=== PATIENT | male | born 1975 | race Caucasian/White ===

== ENCOUNTER 2021-04-15 13:17 | Inpatient (IN) | payer OTHER ==
[2021-04-15 16:33] VITALS: BMI 23.1
[2021-04-15] MEDS ORDERED: ACETAMINOPHEN 325 MG TABLET (FP) PO PRN ×2 (16:44)
[2021-04-15] MEDS ORDERED: NICOTINE 10 MG CARTRIDGE (INHALER) IH PRN (16:44)
[2021-04-15] MEDS ORDERED: diazePAM 5 MG TABLET PO PRN (16:44)
[2021-04-15] MEDS ORDERED: MAGNESIUM CITRATE 300 ML BOTTLE PO PRN (16:44)
[2021-04-15] MEDS ORDERED: BISMUTH SUBSALICYLATE 524 MG/30 ML PO PRN (16:44)
[2021-04-15] MEDS ORDERED: MENTHOL/PHENOL 1 EACH UD MM PRN (16:44)
[2021-04-15] MEDS ORDERED: MAGNESIUM HYDROX 2400MG/30ML ORAL SUSPENSION 30 ML CUP PO PRN (16:44)
[2021-04-15] MEDS ORDERED: MAG HYDROX/AL HYDROX/SIMETH 30 ML UNIT-DOSE CUP PO PRN (16:44)
[2021-04-15] MEDS ORDERED: ONDANSETRON *ODT* 4 MG TABLET SL PRN (16:44)
[2021-04-15] MEDS: hydrOXYzine PAMOATE 25 MG CAPSULE (FP) PO SCH ×2 (18:56→22:36)
[2021-04-15] MEDS: AMOX TR/POT CLAV 875MG/125MG TABLETS (FP) PO SCH (18:56)
[2021-04-15] MEDS: diazePAM 5 MG TABLET PO SCH ×2 (18:56→22:36)
[2021-04-15] MEDS: MELATONIN 5 MG TABLETS PO SCH (22:35)
[2021-04-15] MEDS: THIAMINE HCL 100 MG TABLET (FP) PO SCH (22:36)
[2021-04-16] MEDS: diazePAM 5 MG TABLET PO SCH ×4 (05:29→23:18)
[2021-04-16] MEDS: AMOX TR/POT CLAV 875MG/125MG TABLETS (FP) PO SCH ×2 (07:07→18:17)
[2021-04-16] MEDS ORDERED: methaDONE HCL 10 MG TABLET PO ONE (09:47)
[2021-04-16] MEDS ORDERED: methaDONE 40 MG, methaDONE 10 MG PO ONE (10:00)
[2021-04-16] MEDS ORDERED: methaDONE HCL 10 MG TABLET ONE (11:28)
[2021-04-16] MEDS ORDERED: methaDONE HCL 40 MG DISPERSABLE TABLET ONE (11:28)
[2021-04-16] MEDS: PRENATAL VITAMINS W/ FOLIC ACID TABLET (FP) PO SCH (11:31)
[2021-04-16 12:43] LABS: CHLORIDE 104 mmol/L (98-107); HEMATOCRIT 37.9 % (35.4-49); HEMOGLOBIN 12.8 GM/dL (11.7-16.9); MCH 31.4 pg (25.7-33.7); MCHC 33.7 g/dl (32.0-35.9); MEAN CELL VOLUME 93.2 fl (80-96); MEAN PLT VOLUME 7.8 fl (7.5-11.1); PLATELET COUNT 483 10^3/uL (134-434); RBC 4.07 M/mm3 (4.00-5.60); RDW 13.4 % (11.9-15.9); SODIUM 139 mmol/L (136-145); WHITE BLOOD COUNT 9.8 K/mm3 (4.0-10.0)
[2021-04-16 12:46] LABS: ALBUMIN 3.4 g/dl (3.4-5.0); ANION GAP 2 MMOL/L (8-16); BLOOD UREA NITROGEN 21.7 mg/dL (7-18); CALCIUM 8.8 mg/dL (8.5-10.1); CO2 33 mmol/L (21-32); GLUCOSE,RANDOM 83 mg/dL (74-106)
[2021-04-16 12:50] LABS: CREATININE 0.8 mg/dL (0.55-1.3); SGOT/AST 24 U/L (15-37); SGPT/ALT 24 U/L (13-61)
[2021-04-16 12:51] LABS: BILIRUBIN,TOTAL 0.3 mg/dL (0.2-1); TOT PROT 7.4 g/dl (6.4-8.2)
[2021-04-16 12:52] LABS: ALK PHOS 94 U/L (45-117)
[2021-04-16 22:43] LABS: HIV INTERPRETATION NEGATIVE (NEGATIVE)
[2021-04-16] MEDS: THIAMINE HCL 100 MG TABLET (FP) PO SCH (23:18)
[2021-04-16] MEDS: MELATONIN 5 MG TABLETS PO SCH (23:18)
[2021-04-17] MEDS ORDERED: methaDONE HCL 40 MG DISPERSABLE TABLET PO SCH (06:00)
[2021-04-17] MEDS ORDERED: methaDONE HCL 40 MG DISPERSABLE TABLET ONE (07:24)
[2021-04-17] MEDS ORDERED: methaDONE HCL 10 MG TABLET ONE (07:24)
[2021-04-17] MEDS: AMOX TR/POT CLAV 875MG/125MG TABLETS (FP) PO SCH ×2 (07:27→17:37)
[2021-04-17] MEDS: methaDONE 40 MG, methaDONE 10 MG PO SCH (07:27)
[2021-04-17] MEDS: diazePAM 5 MG TABLET PO SCH ×3 (07:27→22:26)
[2021-04-17] MEDS: BACITRACIN 0.9 GM PACKET TP SCH ×2 (10:36→22:25)
[2021-04-17] MEDS: PRENATAL VITAMINS W/ FOLIC ACID TABLET (FP) PO SCH (10:36)
[2021-04-17] MEDS: MELATONIN 5 MG TABLETS PO SCH (22:25)
[2021-04-17] MEDS: THIAMINE HCL 100 MG TABLET (FP) PO SCH (22:25)
[2021-04-18] MEDS ORDERED: methaDONE HCL 10 MG TABLET ONE (04:09)
[2021-04-18] MEDS ORDERED: methaDONE HCL 40 MG DISPERSABLE TABLET ONE (04:10)
[2021-04-18] MEDS: methaDONE 40 MG, methaDONE 10 MG PO SCH (05:08)
[2021-04-18] MEDS: diazePAM 5 MG TABLET PO SCH ×2 (05:08→16:59)
[2021-04-18] MEDS: AMOX TR/POT CLAV 875MG/125MG TABLETS (FP) PO SCH ×2 (07:00→16:53)
[2021-04-18] MEDS: PRENATAL VITAMINS W/ FOLIC ACID TABLET (FP) PO SCH (10:42)
[2021-04-18] MEDS: BACITRACIN 0.9 GM PACKET TP SCH ×2 (10:42→22:22)
[2021-04-18] MEDS: METHOCARBAMOL 500 MG TABLET PO PRN ×2 (13:18→22:22)
[2021-04-18] MEDS: IBUPROFEN 400 MG TABLET (FP) PO PRN (16:55)
[2021-04-18] MEDS: MELATONIN 5 MG TABLETS PO SCH (22:22)
[2021-04-18] MEDS: GABAPENTIN 300 MG CAPSULE PO SCH (22:22)
[2021-04-18] MEDS: THIAMINE HCL 100 MG TABLET (FP) PO SCH (22:22)
[2021-04-19] MEDS: IBUPROFEN 400 MG TABLET (FP) PO PRN (01:29)
[2021-04-19] MEDS ORDERED: methaDONE HCL 10 MG TABLET ONE (04:30)
[2021-04-19] MEDS ORDERED: methaDONE HCL 40 MG DISPERSABLE TABLET ONE (04:31)
[2021-04-19] MEDS: methaDONE 40 MG, methaDONE 10 MG PO SCH (05:04)
[2021-04-19] MEDS: METHOCARBAMOL 500 MG TABLET PO PRN (05:05)
[2021-04-19] MEDS: GABAPENTIN 300 MG CAPSULE PO SCH (05:05)
[2021-04-19] MEDS ORDERED: diazePAM 5 MG TABLET PO ONE (06:00)
[2021-04-19] MEDS: AMOX TR/POT CLAV 875MG/125MG TABLETS (FP) PO SCH (07:55)
[2021-04-19 09:01] VITALS: BP 99/59; PULSE 69; TEMP 96.6
== END 2021-04-19 10:24 | disposition home or self-care (01) | DRG 773 ==
LOC: YASAS 13:17 → Y3N 17:22
PROVIDERS: ADMIT Allergy & Immunology; ATTEND Allergy & Immunology
PROC: HZ2ZZZZ Detoxification Services for Substance Abuse Treatment (ICD-10-PCS; principal; 2021-04-15)
DX: F10.230 Alcohol dependence with withdrawal, uncomplicated (principal); F11.20 Opioid dependence, uncomplicated; F14.20 Cocaine dependence, uncomplicated; F12.20 Cannabis dependence, uncomplicated; F17.210 Nicotine dependence, cigarettes, uncomplicated; T14.8XXD Other injury of unspecified body region, subsequent encounter; Y93.55 Activity, bike riding; R26.2 Difficulty in walking, not elsewhere classified; Z99.89 Dependence on other enabling machines and devices
CPT/HCPCS: 36415; 80053; 84484; 85027; 86780; 87389; 93005; 93010; C9803; Q0162; U0003; U0005

== ENCOUNTER 2021-04-16 18:09 | Emergency (ER) | payer OTHER ==
[2021-04-16 18:35] VITALS: BP 124/82; PULSE 78; TEMP 97.6; BMI 23.1
[2021-04-16 20:21] LABS: BASO % 0.5 % (0-2.0); EOS % 13.1 % (0-4.5); HEMATOCRIT 35.6 % (35.4-49); LYMPH % 22.8 % (8-40); MCH 30.6 pg (25.7-33.7); MCHC 33.6 g/dl (32.0-35.9); MEAN CELL VOLUME 91.2 fl (80-96); MEAN PLT VOLUME 7.2 fl (7.5-11.1); MONO % 8.7 % (3.8-10.2); NEUT % 54.9 % (42.8-82.8); PLATELET COUNT 430 10^3/uL (134-434); RBC 3.91 M/mm3 (4.00-5.60); RDW 13.3 % (11.9-15.9); WHITE BLOOD COUNT 7.1 K/mm3 (4.0-10.0)
[2021-04-16 20:37] LABS: CHLORIDE 105 mmol/L (98-107); SODIUM 140 mmol/L (136-145)
[2021-04-16 20:42] LABS: ANION GAP 8 MMOL/L (8-16); CALCIUM 9.1 mg/dL (8.5-10.1); CO2 28 mmol/L (21-32)
[2021-04-16 20:43] LABS: ALBUMIN 2.7 g/dl (3.4-5.0); BLOOD UREA NITROGEN 18.9 mg/dL (7-18); GLUCOSE,RANDOM 121 mg/dL (74-106)
[2021-04-16 20:46] LABS: CREATININE 0.7 mg/dL (0.55-1.3); SGOT/AST 17 U/L (15-37); SGPT/ALT 24 U/L (13-61)
[2021-04-16 20:47] LABS: BILIRUBIN,TOTAL 0.2 mg/dL (0.2-1); TOT PROT 6.5 g/dl (6.4-8.2)
[2021-04-16 20:48] LABS: ALK PHOS 85 U/L (45-117)
== END 2021-04-17 06:53 ==
LOC: JER 18:09
DX: R94.31 Abnormal electrocardiogram [ECG] [EKG] (principal)
CPT/HCPCS: 36415; 71045-TC-FY; 80053; 84484; 85025; 93005; 93010; 99285-25

== ENCOUNTER 2021-04-25 13:42 | Inpatient (IN) | payer OTHER ==
[2021-04-25] MEDS ORDERED: MENTHOL/PHENOL 1 EACH UD MM PRN (14:39)
[2021-04-25] MEDS ORDERED: MAGNESIUM CITRATE 300 ML BOTTLE PO PRN (14:39)
[2021-04-25] MEDS ORDERED: NICOTINE 10 MG CARTRIDGE (INHALER) IH PRN (14:39)
[2021-04-25] MEDS ORDERED: ACETAMINOPHEN 325 MG TABLET (FP) PO PRN ×2 (14:39)
[2021-04-25] MEDS ORDERED: ONDANSETRON *ODT* 4 MG TABLET SL PRN (14:39)
[2021-04-25] MEDS ORDERED: methaDONE HCL 10 MG TABLET (FOR DETOX USE ONLY) PO ONE (14:39)
[2021-04-25] MEDS ORDERED: MAGNESIUM HYDROX 2400MG/30ML ORAL SUSPENSION 30 ML CUP PO PRN (14:39)
[2021-04-25] MEDS ORDERED: MAG HYDROX/AL HYDROX/SIMETH 30 ML UNIT-DOSE CUP PO PRN (14:39)
[2021-04-25] MEDS ORDERED: BISMUTH SUBSALICYLATE 524 MG/30 ML PO PRN (14:39)
[2021-04-25 14:58] VITALS: BMI 22.9
[2021-04-25] MEDS: NICOTINE 14 MG/24 HOURS TOPICAL PATCH TD SCH (16:32)
[2021-04-25] MEDS: PRENATAL VITAMINS W/ FOLIC ACID TABLET (FP) PO SCH (16:37)
[2021-04-25] MEDS: diazePAM 5 MG TABLET PO SCH ×2 (16:41→22:55)
[2021-04-25] MEDS: IBUPROFEN 400 MG TABLET (FP) PO PRN (16:43)
[2021-04-25] MEDS: hydrOXYzine PAMOATE 25 MG CAPSULE (FP) PO SCH ×2 (17:00→22:55)
[2021-04-25] MEDS: MELATONIN 5 MG TABLETS PO SCH (22:55)
[2021-04-25] MEDS: BACITRACIN 0.9 GM PACKET TP SCH (22:55)
[2021-04-25] MEDS: THIAMINE HCL 100 MG TABLET (FP) PO SCH (22:55)
[2021-04-26] MEDS: hydrOXYzine PAMOATE 25 MG CAPSULE (FP) PO SCH (05:34)
[2021-04-26] MEDS: diazePAM 5 MG TABLET PO SCH ×4 (05:34→22:58)
[2021-04-26] MEDS: cloNIDine HCL 0.1 MG TABLET PO PRN ×2 (08:08→19:33)
[2021-04-26] MEDS ORDERED: methaDONE HCL 10 MG TABLET (FOR DETOX USE ONLY) ONE (09:29)
[2021-04-26] MEDS: BACITRACIN 0.9 GM PACKET TP SCH ×2 (09:35→21:58)
[2021-04-26] MEDS: METHOCARBAMOL 500 MG TABLET PO PRN ×2 (09:37→17:51)
[2021-04-26] MEDS: NICOTINE 14 MG/24 HOURS TOPICAL PATCH TD SCH (09:37)
[2021-04-26] MEDS: PRENATAL VITAMINS W/ FOLIC ACID TABLET (FP) PO SCH (10:05)
[2021-04-26 11:25] LABS: HEMOGLOBIN 12.7 GM/dL (11.7-16.9); MCHC 35.1 g/dl (32.0-35.9); MEAN CELL VOLUME 88.2 fl (80-96); MEAN PLT VOLUME 7.2 fl (7.5-11.1); PLATELET COUNT 471 10^3/uL (134-434); RBC 4.08 M/mm3 (4.00-5.60); WHITE BLOOD COUNT 6.4 K/mm3 (4.0-10.0)
[2021-04-26 11:30] LABS: ALBUMIN 2.8 g/dl (3.4-5.0); BLOOD UREA NITROGEN 15.6 mg/dL (7-18); CALCIUM 8.7 mg/dL (8.5-10.1)
[2021-04-26 11:31] LABS: CREATININE 0.7 mg/dL (0.55-1.3)
[2021-04-26 11:33] LABS: BILIRUBIN,TOTAL 0.2 mg/dL (0.2-1); TOT PROT 6.7 g/dl (6.4-8.2)
[2021-04-26] MEDS: diazePAM 5 MG TABLET PO PRN (15:34)
[2021-04-26] MEDS: hydrOXYzine PAMOATE 25 MG CAPSULE (FP) PO PRN (19:33)
[2021-04-26] MEDS: MELATONIN 5 MG TABLETS PO SCH (21:58)
[2021-04-26] MEDS: THIAMINE HCL 100 MG TABLET (FP) PO SCH (21:58)
[2021-04-26] MEDS: IBUPROFEN 400 MG TABLET (FP) PO PRN (23:49)
[2021-04-27] MEDS: diazePAM 5 MG TABLET PO PRN ×3 (02:33→16:39)
[2021-04-27] MEDS: diazePAM 5 MG TABLET PO SCH ×3 (05:06→22:55)
[2021-04-27] MEDS: hydrOXYzine PAMOATE 25 MG CAPSULE (FP) PO PRN ×3 (05:06→16:35)
[2021-04-27] MEDS: cloNIDine HCL 0.1 MG TABLET PO PRN ×2 (05:06→16:34)
[2021-04-27] MEDS: METHOCARBAMOL 500 MG TABLET PO PRN ×3 (06:39→19:40)
[2021-04-27] MEDS ORDERED: methaDONE HCL 10 MG TABLET (FOR DETOX USE ONLY) PO ONE (10:00)
[2021-04-27] MEDS: PRENATAL VITAMINS W/ FOLIC ACID TABLET (FP) PO SCH (10:06)
[2021-04-27] MEDS: BACITRACIN 0.9 GM PACKET TP SCH ×2 (10:06→22:56)
[2021-04-27] MEDS: NICOTINE 14 MG/24 HOURS TOPICAL PATCH TD SCH (10:06)
[2021-04-27] MEDS: IBUPROFEN 400 MG TABLET (FP) PO PRN (16:35)
[2021-04-27 18:36] VITALS: TEMP 97.1
[2021-04-27] MEDS: THIAMINE HCL 100 MG TABLET (FP) PO SCH (22:55)
[2021-04-27] MEDS: MELATONIN 5 MG TABLETS PO SCH (22:55)
[2021-04-28] MEDS ORDERED: methaDONE HCL 10 MG TABLET (FOR DETOX USE ONLY) PO ONE (03:58)
[2021-04-28] MEDS ORDERED: diazePAM 5 MG TABLET PO SCH (06:00)
[2021-04-28] MEDS: diazePAM 5 MG TABLET PO PRN (06:09)
[2021-04-28 09:04] VITALS: BP 129/84; PULSE 93
[2021-04-28] MEDS ORDERED: methaDONE HCL 10 MG TABLET (FOR DETOX USE ONLY) ONE (09:20)
[2021-04-29] MEDS ORDERED: diazePAM 5 MG TABLET PO ONE (06:00)
[2021-04-29] MEDS ORDERED: methaDONE HCL 10 MG TABLET (FOR DETOX USE ONLY) PO ONE (10:00)
== END 2021-04-28 10:41 | disposition left against medical advice (07) | DRG 770 ==
LOC: YASAS 13:42 → Y3N 15:31
PROVIDERS: ADMIT Allergy & Immunology; ATTEND Allergy & Immunology
PROC: HZ2ZZZZ Detoxification Services for Substance Abuse Treatment (ICD-10-PCS; principal; 2021-04-25)
DX: F11.23 Opioid dependence with withdrawal (principal); F10.230 Alcohol dependence with withdrawal, uncomplicated; F14.20 Cocaine dependence, uncomplicated; F12.20 Cannabis dependence, uncomplicated; F17.210 Nicotine dependence, cigarettes, uncomplicated; F19.24 Other psychoactive substance dependence with psychoactive substance-induced mood disorder; F41.1 Generalized anxiety disorder; Z87.81 Personal history of (healed) traumatic fracture; Z59.02 Unsheltered homelessness; Z56.0 Unemployment, unspecified
CPT/HCPCS: 36415; 80053; 85027; 86780; C9803; J0735; U0003; U0005

== ENCOUNTER 2021-06-06 14:18 | Inpatient (IN) | payer OTHER ==
[2021-06-06] MEDS ORDERED: methaDONE HCL 10 MG TABLET (FOR DETOX USE ONLY) PO ONE (15:31)
[2021-06-06] MEDS ORDERED: BISMUTH SUBSALICYLATE 524 MG/30 ML PO PRN (15:31)
[2021-06-06] MEDS ORDERED: MENTHOL/PHENOL 1 EACH UD MM PRN (15:31)
[2021-06-06] MEDS ORDERED: MAGNESIUM CITRATE 300 ML BOTTLE PO PRN (15:31)
[2021-06-06] MEDS ORDERED: cloNIDine HCL 0.1 MG TABLET PO PRN (15:31)
[2021-06-06] MEDS ORDERED: IBUPROFEN 400 MG TABLET (FP) PO PRN (15:31)
[2021-06-06] MEDS ORDERED: ACETAMINOPHEN 325 MG TABLET (FP) PO PRN ×2 (15:31)
[2021-06-06] MEDS ORDERED: NICOTINE 10 MG CARTRIDGE (INHALER) IH PRN (15:31)
[2021-06-06] MEDS ORDERED: MAGNESIUM HYDROX 2400MG/30ML ORAL SUSPENSION 30 ML CUP PO PRN (15:31)
[2021-06-06] MEDS ORDERED: MAG HYDROX/AL HYDROX/SIMETH 30 ML UNIT-DOSE CUP PO PRN (15:31)
[2021-06-06] MEDS ORDERED: ONDANSETRON *ODT* 4 MG TABLET SL PRN (15:31)
[2021-06-06 17:24] VITALS: BMI 20.8
[2021-06-06] MEDS: NICOTINE 14 MG/24 HOURS TOPICAL PATCH TD SCH (17:58)
[2021-06-06] MEDS: PRENATAL VITAMINS W/ FOLIC ACID TABLET (FP) PO SCH (17:58)
[2021-06-06] MEDS: hydrOXYzine PAMOATE 25 MG CAPSULE (FP) PO SCH ×2 (20:08→22:21)
[2021-06-06] MEDS: MELATONIN 5 MG TABLETS PO SCH (22:21)
[2021-06-06] MEDS: THIAMINE HCL 100 MG TABLET (FP) PO SCH (22:21)
[2021-06-06] MEDS: METHOCARBAMOL 500 MG TABLET PO PRN (22:27)
[2021-06-07] MEDS: hydrOXYzine PAMOATE 25 MG CAPSULE (FP) PO SCH ×5 (07:09→22:11)
[2021-06-07] MEDS ORDERED: methaDONE HCL 10 MG TABLET (FOR DETOX USE ONLY) ONE (09:15)
[2021-06-07] MEDS: METHOCARBAMOL 500 MG TABLET PO PRN ×2 (09:40→22:11)
[2021-06-07] MEDS: PRENATAL VITAMINS W/ FOLIC ACID TABLET (FP) PO SCH (09:41)
[2021-06-07] MEDS: NICOTINE 14 MG/24 HOURS TOPICAL PATCH TD SCH (09:41)
[2021-06-07] MEDS: diazePAM 5 MG TABLET PO PRN ×3 (11:50→23:02)
[2021-06-07 14:53] LABS: HEMATOCRIT 40.9 % (35.4-49); HEMOGLOBIN 13.6 GM/dL (11.7-16.9); MCH 30.1 pg (25.7-33.7); MCHC 33.2 g/dl (32.0-35.9); MEAN CELL VOLUME 90.6 fl (80-96); PLATELET COUNT 406 10^3/uL (134-434); RBC 4.51 M/mm3 (4.00-5.60); RDW 13.3 % (11.9-15.9); WHITE BLOOD COUNT 6.4 K/mm3 (4.0-10.0)
[2021-06-07 15:00] LABS: ALBUMIN 3.4 g/dl (3.4-5.0); CREATININE 0.8 mg/dL (0.55-1.3)
[2021-06-07 15:02] LABS: BILIRUBIN,TOTAL 0.5 mg/dL (0.2-1)
[2021-06-07] MEDS: THIAMINE HCL 100 MG TABLET (FP) PO SCH (22:11)
[2021-06-07] MEDS: MELATONIN 5 MG TABLETS PO SCH (22:11)
[2021-06-08] MEDS: hydrOXYzine PAMOATE 25 MG CAPSULE (FP) PO SCH ×6 (07:02→22:15)
[2021-06-08] MEDS: diazePAM 5 MG TABLET PO PRN ×4 (07:19→22:15)
[2021-06-08] MEDS ORDERED: methaDONE HCL 10 MG TABLET (FOR DETOX USE ONLY) PO ONE (10:00)
[2021-06-08] MEDS: PRENATAL VITAMINS W/ FOLIC ACID TABLET (FP) PO SCH (10:32)
[2021-06-08] MEDS: NICOTINE 14 MG/24 HOURS TOPICAL PATCH TD SCH (10:32)
[2021-06-08] MEDS: THIAMINE HCL 100 MG TABLET (FP) PO SCH (22:15)
[2021-06-08] MEDS: MELATONIN 5 MG TABLETS PO SCH (22:16)
[2021-06-09] MEDS: diazePAM 5 MG TABLET PO PRN ×6 (03:01→23:49)
[2021-06-09] MEDS: hydrOXYzine PAMOATE 25 MG CAPSULE (FP) PO SCH ×5 (07:15→22:01)
[2021-06-09] MEDS ORDERED: methaDONE HCL 10 MG TABLET (FOR DETOX USE ONLY) ONE (09:23)
[2021-06-09] MEDS: PRENATAL VITAMINS W/ FOLIC ACID TABLET (FP) PO SCH (10:37)
[2021-06-09] MEDS: NICOTINE 14 MG/24 HOURS TOPICAL PATCH TD SCH (10:37)
[2021-06-09] MEDS: METHOCARBAMOL 500 MG TABLET PO PRN (13:54)
[2021-06-09] MEDS: THIAMINE HCL 100 MG TABLET (FP) PO SCH (22:01)
[2021-06-09] MEDS: MELATONIN 5 MG TABLETS PO SCH (22:02)
[2021-06-10] MEDS: diazePAM 5 MG TABLET PO PRN ×2 (06:54→10:12)
[2021-06-10] MEDS: hydrOXYzine PAMOATE 25 MG CAPSULE (FP) PO SCH ×5 (06:54→21:29)
[2021-06-10] MEDS ORDERED: methaDONE HCL 10 MG TABLET (FOR DETOX USE ONLY) PO ONE (10:00)
[2021-06-10] MEDS: METHOCARBAMOL 500 MG TABLET PO PRN ×2 (10:11→18:14)
[2021-06-10] MEDS: NICOTINE 14 MG/24 HOURS TOPICAL PATCH TD SCH (10:12)
[2021-06-10] MEDS: PRENATAL VITAMINS W/ FOLIC ACID TABLET (FP) PO SCH (10:12)
[2021-06-10] MEDS: THIAMINE HCL 100 MG TABLET (FP) PO SCH (21:29)
[2021-06-10] MEDS: MELATONIN 5 MG TABLETS PO SCH (21:30)
[2021-06-11] MEDS: hydrOXYzine PAMOATE 25 MG CAPSULE (FP) PO SCH ×3 (05:51→13:35)
[2021-06-11 09:06] VITALS: BP 94/59; PULSE 84; TEMP 98.9
[2021-06-11] MEDS: NICOTINE 14 MG/24 HOURS TOPICAL PATCH TD SCH (10:37)
[2021-06-11] MEDS: PRENATAL VITAMINS W/ FOLIC ACID TABLET (FP) PO SCH (10:39)
== END 2021-06-11 14:35 | disposition home or self-care (01) | DRG 773 ==
LOC: YASAS 14:18 → Y3N 17:20
PROVIDERS: ADMIT Allergy & Immunology; ATTEND Allergy & Immunology
PROC: HZ2ZZZZ Detoxification Services for Substance Abuse Treatment (ICD-10-PCS; principal; 2021-06-06)
DX: F11.23 Opioid dependence with withdrawal (principal); F14.20 Cocaine dependence, uncomplicated; F12.20 Cannabis dependence, uncomplicated; F17.210 Nicotine dependence, cigarettes, uncomplicated; F41.1 Generalized anxiety disorder; F19.24 Other psychoactive substance dependence with psychoactive substance-induced mood disorder; R26.2 Difficulty in walking, not elsewhere classified; Z99.89 Dependence on other enabling machines and devices; Z56.0 Unemployment, unspecified; Z59.02 Unsheltered homelessness
CPT/HCPCS: 36415; 80053; 85027; 86780; C9803; J0735; U0003; U0005

== ENCOUNTER 2022-07-09 18:35 | Inpatient (IN) | payer OTHER ==
[2022-07-09 19:26] VITALS: BMI 17.8
[2022-07-09] MEDS ORDERED: BENZOCAINE/MENTHOL (CHLORASEPTIC ) LOZENGE MM PRN (23:25)
[2022-07-09] MEDS ORDERED: NICOTINE POLACRILEX 4 MG GUM BUC PRN (23:25)
[2022-07-09] MEDS ORDERED: MAGNESIUM HYDROX 2400MG/30ML ORAL SUSPENSION 30 ML CUP PO PRN (23:25)
[2022-07-09] MEDS ORDERED: IBUPROFEN 400 MG TABLET (FP) PO PRN (23:25)
[2022-07-09] MEDS ORDERED: MAG HYDROX/AL HYDROX/SIMETH 30 ML UNIT-DOSE CUP PO PRN (23:25)
[2022-07-09] MEDS ORDERED: LOPERAMIDE HCL 2 MG CAPSULE PO PRN (23:25)
[2022-07-09] MEDS ORDERED: NALOXONE HCL (KLOXXADO) 8 MG SPRAY NS PRN (23:25)
[2022-07-09] MEDS ORDERED: BISMUTH SUBSALICYLATE 524 MG/30 ML PO PRN (23:25)
[2022-07-09] MEDS ORDERED: DICYCLOMINE HCL 10 MG CAPSULE PO PRN (23:25)
[2022-07-09] MEDS ORDERED: POLYETHYLENE GLYCOL (HEALTHYLAX) 3350 17 GM PACKET PO PRN (23:25)
[2022-07-09] MEDS ORDERED: ACETAMINOPHEN 325 MG TABLET (FP) PO PRN (23:25)
[2022-07-10] MEDS: ACETAMINOPHEN 325 MG TABLET (FP) PO PRN ×3 (06:00→23:51)
[2022-07-10] MEDS: ONDANSETRON *ODT* 4 MG TABLET SL PRN (07:13)
[2022-07-10] MEDS ORDERED: methaDONE HCL 10 MG TABLET (FOR DETOX USE ONLY) PO ONE (07:18)
[2022-07-10] MEDS: cloNIDine HCL 0.1 MG TABLET PO PRN ×2 (10:17→15:20)
[2022-07-10] MEDS: PRENATAL VITAMINS W/ FOLIC ACID TABLET (FP) PO SCH (10:18)
[2022-07-10] MEDS: NICOTINE 21 MG/24 HOURS TOPICAL PATCH TD SCH (10:18)
[2022-07-10 13:03] LABS: HEMATOCRIT 41.5 % (35.4-49); HEMOGLOBIN 13.6 GM/dL (11.7-16.9); MCH 30.4 pg (25.7-33.7); MCHC 32.8 g/dl (32.0-35.9); MEAN CELL VOLUME 92.5 fl (80-96); MEAN PLT VOLUME 7.8 fl (7.5-11.1); PLATELET COUNT 392 10^3/uL (134-434); RBC 4.49 M/mm3 (4.00-5.60); RDW 13.6 % (11.9-15.9); WHITE BLOOD COUNT 5.8 K/mm3 (4.0-10.0)
[2022-07-10 13:06] LABS: CALCIUM 8.8 mg/dL (8.5-10.1)
[2022-07-10 13:07] LABS: ALBUMIN 3.3 g/dl (3.4-5.0); BLOOD UREA NITROGEN 16.6 mg/dL (7-18)
[2022-07-10 13:10] LABS: CREATININE 0.8 mg/dL (0.55-1.3)
[2022-07-10 13:12] LABS: BILIRUBIN,TOTAL 0.2 mg/dL (0.2-1); TOT PROT 6.3 g/dl (6.4-8.2)
[2022-07-10] MEDS: diazePAM 5 MG TABLET PO PRN ×3 (13:32→22:51)
[2022-07-10] MEDS: IBUPROFEN 600 MG TABLET (FP) PO PRN (13:33)
[2022-07-10] MEDS: METHOCARBAMOL 500 MG TABLET PO PRN ×2 (13:33→22:50)
[2022-07-10] MEDS ORDERED: diazePAM 5 MG TABLET PO ONE (17:56)
[2022-07-10] MEDS: hydrOXYzine PAMOATE 25 MG CAPSULE (FP) PO PRN (18:49)
[2022-07-10] MEDS: THIAMINE HCL 100 MG TABLET (FP) PO SCH (22:50)
[2022-07-10] MEDS: MELATONIN 5 MG TABLETS PO SCH (22:50)
[2022-07-11] MEDS: IBUPROFEN 600 MG TABLET (FP) PO PRN ×2 (02:25→12:35)
[2022-07-11] MEDS: METHOCARBAMOL 500 MG TABLET PO PRN ×2 (09:20→19:35)
[2022-07-11] MEDS: PRENATAL VITAMINS W/ FOLIC ACID TABLET (FP) PO SCH (09:20)
[2022-07-11] MEDS: NICOTINE 21 MG/24 HOURS TOPICAL PATCH TD SCH (09:23)
[2022-07-11] MEDS: diazePAM 5 MG TABLET PO PRN ×2 (09:23→19:38)
[2022-07-11] MEDS: hydrOXYzine PAMOATE 25 MG CAPSULE (FP) PO PRN ×2 (12:35→19:36)
[2022-07-11] MEDS: cloNIDine HCL 0.1 MG TABLET PO PRN (12:36)
[2022-07-11] MEDS: MELATONIN 5 MG TABLETS PO SCH (23:04)
[2022-07-11] MEDS: THIAMINE HCL 100 MG TABLET (FP) PO SCH (23:04)
[2022-07-12] MEDS: diazePAM 5 MG TABLET PO PRN ×2 (05:31→09:18)
[2022-07-12] MEDS: ONDANSETRON *ODT* 4 MG TABLET SL PRN (07:28)
[2022-07-12] MEDS: hydrOXYzine PAMOATE 25 MG CAPSULE (FP) PO PRN ×2 (09:18→16:01)
[2022-07-12] MEDS: METHOCARBAMOL 500 MG TABLET PO PRN (09:18)
[2022-07-12] MEDS: PRENATAL VITAMINS W/ FOLIC ACID TABLET (FP) PO SCH (09:19)
[2022-07-12] MEDS: NICOTINE 21 MG/24 HOURS TOPICAL PATCH TD SCH (09:19)
[2022-07-12] MEDS ORDERED: methaDONE HCL 10 MG TABLET (FOR DETOX USE ONLY) PO ONE (10:00)
[2022-07-12] MEDS: cloNIDine HCL 0.1 MG TABLET PO PRN (16:01)
[2022-07-12] MEDS: MELATONIN 5 MG TABLETS PO SCH (23:17)
[2022-07-12] MEDS: THIAMINE HCL 100 MG TABLET (FP) PO SCH (23:17)
[2022-07-13] MEDS: hydrOXYzine PAMOATE 25 MG CAPSULE (FP) PO PRN ×2 (01:36→09:38)
[2022-07-13] MEDS: METHOCARBAMOL 500 MG TABLET PO PRN (01:36)
[2022-07-13] MEDS ORDERED: ALBUTEROL SO4 HFA INHALER IH PRN (09:00)
[2022-07-13 09:36] VITALS: BP 130/89; PULSE 78; RESP 18; TEMP 96.1
[2022-07-13] MEDS: PRENATAL VITAMINS W/ FOLIC ACID TABLET (FP) PO SCH (09:38)
[2022-07-13] MEDS: NICOTINE 21 MG/24 HOURS TOPICAL PATCH TD SCH (09:38)
[2022-07-14] MEDS ORDERED: methaDONE HCL 10 MG TABLET (FOR DETOX USE ONLY) PO ONE (10:00)
== END 2022-07-13 11:37 | disposition left against medical advice (07) | DRG 770 ==
LOC: YASAS 18:35 → Y3N 23:48
PROVIDERS: ADMIT Allergy & Immunology; ATTEND Surgery
PROC: HZ2ZZZZ Detoxification Services for Substance Abuse Treatment (ICD-10-PCS; principal; 2022-07-09)
DX: F11.23 Opioid dependence with withdrawal (principal); F14.20 Cocaine dependence, uncomplicated; F17.210 Nicotine dependence, cigarettes, uncomplicated; F19.24 Other psychoactive substance dependence with psychoactive substance-induced mood disorder; F41.9 Anxiety disorder, unspecified; J45.909 Unspecified asthma, uncomplicated; R40.0 Somnolence; R03.0 Elevated blood-pressure reading, without diagnosis of hypertension; Z91.81 History of falling; Z59.00 Homelessness unspecified
CPT/HCPCS: 36415; 80053; 85027; 86780; 87811; C9803-CS; Q0162; U0003; U0005

== ENCOUNTER 2022-10-21 17:28 | Inpatient (IN) | payer OTHER ==
[2022-10-21 17:57] VITALS: BMI 22.4
[2022-10-21] MEDS ORDERED: ALBUTEROL SO4 0.083% IH SOL 2.5 MG/3 ML VIAL.NEB. NEB ONE ×2 (20:34→20:42)
[2022-10-21] MEDS ORDERED: BENZONATATE 200 MG CAPSULE PO PRN (21:38)
[2022-10-21] MEDS ORDERED: MAG HYDROX/AL HYDROX/SIMETH 30 ML UNIT-DOSE CUP PO PRN (21:38)
[2022-10-21] MEDS ORDERED: DICYCLOMINE HCL 10 MG CAPSULE PO PRN (21:38)
[2022-10-21] MEDS ORDERED: P-EPHED 60MG/TRIPROLIDI 2.5MG TABLET PO PRN (21:38)
[2022-10-21] MEDS ORDERED: POLYETHYLENE GLYCOL (HEALTHYLAX) 3350 17 GM PACKET PO PRN (21:38)
[2022-10-21] MEDS ORDERED: BENZOCAINE/MENTHOL (CHLORASEPTIC ) LOZENGE MM PRN (21:38)
[2022-10-21] MEDS ORDERED: guaiFENesin 600 MG TABLET.ER (FP) PO PRN (21:38)
[2022-10-21] MEDS ORDERED: NICOTINE POLACRILEX 2 MG GUM BUC PRN (21:38)
[2022-10-21] MEDS ORDERED: ACETAMINOPHEN 325 MG TABLET (FP) PO PRN (21:38)
[2022-10-21] MEDS ORDERED: NALOXONE HCL (KLOXXADO) 8 MG SPRAY NS PRN (21:38)
[2022-10-21] MEDS ORDERED: NALOXONE HCL 0.4 MG/ML VIAL IM PRN (21:38)
[2022-10-21] MEDS ORDERED: IBUPROFEN 400 MG TABLET (FP) PO PRN (21:38)
[2022-10-21] MEDS ORDERED: MAGNESIUM HYDROX 2400MG/30ML ORAL SUSPENSION 30 ML CUP PO PRN (21:38)
[2022-10-21] MEDS ORDERED: LOPERAMIDE HCL 2 MG CAPSULE PO PRN (21:38)
[2022-10-21] MEDS ORDERED: MELATONIN 5 MG TABLETS PO PRN (21:38)
[2022-10-21] MEDS ORDERED: BISMUTH SUBSALICYLATE 524 MG/30 ML PO PRN (21:38)
[2022-10-21] MEDS: BACITRACIN 0.9 GM PACKET TP SCH (22:42)
[2022-10-21] MEDS: CEPHALEXIN MONOHYDRATE 500 MG CAPSULE (UD) PO SCH (22:42)
[2022-10-21] MEDS: THIAMINE HCL 100 MG TABLET (FP) PO SCH (23:08)
[2022-10-22] MEDS ORDERED: cloNIDine HCL 0.1 MG TABLET PO ONE ×2 (03:15→03:40)
[2022-10-22] MEDS ORDERED: METHOCARBAMOL 500 MG TABLET PO ONE (03:26)
[2022-10-22] MEDS: IBUPROFEN 600 MG TABLET (FP) PO PRN ×3 (03:51→22:40)
[2022-10-22] MEDS: ALBUTEROL SO4 2.5/IPRATROPIUM 0.5 INH SOL 3 ML VIAL.NEB. NEB SCH ×4 (06:50→17:30)
[2022-10-22] MEDS: PRENATAL VITAMINS W/ FOLIC ACID TABLET (FP) PO SCH (10:00)
[2022-10-22] MEDS ORDERED: methaDONE HCL 10 MG TABLET (FOR DETOX USE ONLY) PO ONE (10:00)
[2022-10-22] MEDS: CEPHALEXIN MONOHYDRATE 500 MG CAPSULE (UD) PO SCH ×2 (10:01→22:41)
[2022-10-22] MEDS: BACITRACIN 0.9 GM PACKET TP SCH ×2 (10:02→22:41)
[2022-10-22 10:49] LABS: HEMOGLOBIN 13.6 GM/dL (11.7-16.9); MCH 30.7 pg (25.7-33.7); MEAN CELL VOLUME 90.5 fl (80-96); MEAN PLT VOLUME 8.2 fl (7.5-11.1); PLATELET COUNT 435 10^3/uL (134-434); RBC 4.42 M/mm3 (4.00-5.60); RDW 13.7 % (11.9-15.9); WHITE BLOOD COUNT 7.8 K/mm3 (4.0-10.0)
[2022-10-22 11:30] LABS: ALBUMIN 3.5 g/dl (3.4-5.0); BLOOD UREA NITROGEN 15.7 mg/dL (7-18); CALCIUM 9.3 mg/dL (8.5-10.1)
[2022-10-22 11:33] LABS: CREATININE 0.7 mg/dL (0.55-1.3)
[2022-10-22 11:35] LABS: BILIRUBIN,TOTAL 0.4 mg/dL (0.2-1)
[2022-10-22] MEDS ORDERED: FLU VACC QS2022-23(6MOS UP)/PF 60 MCG/0.5 ML SYRINGE IM ONE (12:00)
[2022-10-22] MEDS ORDERED: PNEUMOC 20-VAL CONJ-DIP CRM/PF 0.5 ML SYRINGE IM ONE (12:00)
[2022-10-22] MEDS: cloNIDine HCL 0.1 MG TABLET PO PRN ×2 (13:22→16:50)
[2022-10-22] MEDS: diazePAM 5 MG TABLET PO PRN ×2 (17:10→22:42)
[2022-10-22] MEDS: ONDANSETRON *ODT* 4 MG TABLET SL PRN (17:13)
[2022-10-22] MEDS: THIAMINE HCL 100 MG TABLET (FP) PO SCH (22:41)
[2022-10-23] MEDS: IBUPROFEN 600 MG TABLET (FP) PO PRN ×2 (03:55→18:50)
[2022-10-23] MEDS: diazePAM 5 MG TABLET PO PRN ×3 (03:55→15:33)
[2022-10-23] MEDS: cloNIDine HCL 0.1 MG TABLET PO PRN ×2 (06:56→18:48)
[2022-10-23] MEDS: CEPHALEXIN MONOHYDRATE 500 MG CAPSULE (UD) PO SCH ×2 (09:07→22:58)
[2022-10-23] MEDS: PRENATAL VITAMINS W/ FOLIC ACID TABLET (FP) PO SCH (09:08)
[2022-10-23] MEDS: BACITRACIN 0.9 GM PACKET TP SCH ×2 (09:08→22:58)
[2022-10-23] MEDS: THIAMINE HCL 100 MG TABLET (FP) PO SCH (22:58)
[2022-10-24] MEDS: diazePAM 5 MG TABLET PO PRN ×2 (04:54→10:21)
[2022-10-24] MEDS: IBUPROFEN 600 MG TABLET (FP) PO PRN (04:54)
[2022-10-24 09:03] VITALS: BP 114/80; PULSE 88; RESP 16; TEMP 98.1
[2022-10-24] MEDS ORDERED: methaDONE HCL 10 MG TABLET (FOR DETOX USE ONLY) PO ONE (10:00)
[2022-10-24] MEDS: PRENATAL VITAMINS W/ FOLIC ACID TABLET (FP) PO SCH (10:21)
[2022-10-24] MEDS: CEPHALEXIN MONOHYDRATE 500 MG CAPSULE (UD) PO SCH (10:21)
[2022-10-24] MEDS: ONDANSETRON *ODT* 4 MG TABLET SL PRN (10:27)
[2022-10-24] MEDS: BACITRACIN 0.9 GM PACKET TP SCH (10:55)
[2022-10-26] MEDS ORDERED: methaDONE HCL 10 MG TABLET (FOR DETOX USE ONLY) PO ONE (10:00)
== END 2022-10-24 11:23 | disposition left against medical advice (07) | DRG 770 ==
LOC: YASAS 17:28 → Y6N 22:10 → UNDOADMIN 22:10
PROVIDERS: ADMIT Allergy & Immunology; ATTEND Surgery
PROC: HZ2ZZZZ Detoxification Services for Substance Abuse Treatment (ICD-10-PCS; principal; 2022-10-21)
DX: F11.23 Opioid dependence with withdrawal (principal); F14.20 Cocaine dependence, uncomplicated; F12.20 Cannabis dependence, uncomplicated; F17.210 Nicotine dependence, cigarettes, uncomplicated
CPT/HCPCS: 36415; 80053; 85027; 86780; 90677; 94640; C9803-CS; G0008; Q0162; Q2036; U0003; U0005

== ENCOUNTER 2022-12-11 21:12 | Inpatient (IN) | payer OTHER ==
[2022-12-11 21:45] VITALS: BMI 23.8
[2022-12-11] MEDS ORDERED: MAGNESIUM HYDROX 2400MG/30ML ORAL SUSPENSION 30 ML CUP PO PRN (22:15)
[2022-12-11] MEDS ORDERED: IBUPROFEN 400 MG TABLET (FP) PO PRN (22:15)
[2022-12-11] MEDS ORDERED: POLYETHYLENE GLYCOL (HEALTHYLAX) 3350 17 GM PACKET PO PRN (22:15)
[2022-12-11] MEDS ORDERED: BISMUTH SUBSALICYLATE 524 MG/30 ML PO PRN (22:15)
[2022-12-11] MEDS ORDERED: NICOTINE POLACRILEX 2 MG GUM BUC PRN (22:15)
[2022-12-11] MEDS ORDERED: NALOXONE HCL 0.4 MG/ML VIAL IM PRN (22:15)
[2022-12-11] MEDS ORDERED: ACETAMINOPHEN 325 MG TABLET (FP) PO PRN (22:15)
[2022-12-11] MEDS ORDERED: BENZONATATE 200 MG CAPSULE PO PRN (22:15)
[2022-12-11] MEDS ORDERED: MAG HYDROX/AL HYDROX/SIMETH 30 ML UNIT-DOSE CUP PO PRN (22:15)
[2022-12-11] MEDS ORDERED: BENZOCAINE/MENTHOL (CHLORASEPTIC ) LOZENGE MM PRN (22:15)
[2022-12-11] MEDS ORDERED: LOPERAMIDE HCL 2 MG CAPSULE PO PRN (22:15)
[2022-12-11] MEDS ORDERED: NALOXONE HCL (KLOXXADO) 8 MG SPRAY NS PRN (22:15)
[2022-12-11] MEDS ORDERED: IBUPROFEN 600 MG TABLET (FP) PO PRN (22:15)
[2022-12-11] MEDS ORDERED: NICOTINE 10 MG CARTRIDGE (INHALER) IH PRN (22:15)
[2022-12-11] MEDS ORDERED: P-EPHED 60MG/TRIPROLIDI 2.5MG TABLET PO PRN (22:15)
[2022-12-11] MEDS ORDERED: hydrOXYzine PAMOATE 25 MG CAPSULE (FP) PO PRN (22:15)
[2022-12-11] MEDS ORDERED: ONDANSETRON *ODT* 4 MG TABLET SL PRN (22:15)
[2022-12-11] MEDS ORDERED: guaiFENesin 600 MG TABLET.ER (FP) PO PRN (22:15)
[2022-12-11] MEDS ORDERED: DICYCLOMINE HCL 10 MG CAPSULE PO PRN (22:15)
[2022-12-12] MEDS: PRENATAL VITAMINS W/ FOLIC ACID TABLET (FP) PO SCH (10:37)
[2022-12-12 11:04] LABS: HEMATOCRIT 42.4 % (35.4-49); HEMOGLOBIN 13.4 GM/dL (11.7-16.9); MCH 29.2 pg (25.7-33.7); MCHC 31.6 g/dl (32.0-35.9); MEAN CELL VOLUME 92.3 fl (80-96); MEAN PLT VOLUME 8.2 fl (7.5-11.1); PLATELET COUNT 383 10^3/uL (134-434); RBC 4.59 M/mm3 (4.00-5.60); RDW 14.8 % (11.9-15.9)
[2022-12-12 11:07] LABS: POTASSIUM 4.6 mmol/L (3.5-5.1)
[2022-12-12 11:15] LABS: CALCIUM 9.4 mg/dL (8.5-10.1)
[2022-12-12 11:16] LABS: ALBUMIN 3.7 g/dl (3.4-5.0); BLOOD UREA NITROGEN 17.4 mg/dL (7-18)
[2022-12-12 11:18] LABS: CREATININE 0.8 mg/dL (0.55-1.3)
[2022-12-12 11:20] LABS: BILIRUBIN,TOTAL 0.2 mg/dL (0.2-1); TOT PROT 7.1 g/dl (6.4-8.2)
[2022-12-12] MEDS: cloNIDine HCL 0.1 MG TABLET PO PRN ×2 (18:05→22:59)
[2022-12-12] MEDS ORDERED: methaDONE HCL 10 MG TABLET (FOR DETOX USE ONLY) PO ONE (18:30)
[2022-12-12] MEDS: hydrOXYzine PAMOATE 25 MG CAPSULE (FP) PO PRN (18:56)
[2022-12-12] MEDS: THIAMINE HCL 100 MG TABLET (FP) PO SCH ×2 (22:53→22:59)
[2022-12-12] MEDS: MELATONIN 5 MG TABLETS PO PRN (22:59)
[2022-12-13] MEDS: cloNIDine HCL 0.1 MG TABLET PO PRN (07:02)
[2022-12-13] MEDS: hydrOXYzine PAMOATE 25 MG CAPSULE (FP) PO PRN ×2 (07:02→21:46)
[2022-12-13] MEDS: PRENATAL VITAMINS W/ FOLIC ACID TABLET (FP) PO SCH (10:12)
[2022-12-13] MEDS: diazePAM 5 MG TABLET PO PRN ×3 (11:59→21:46)
[2022-12-13] MEDS: MELATONIN 5 MG TABLETS PO PRN (21:46)
[2022-12-13] MEDS: THIAMINE HCL 100 MG TABLET (FP) PO SCH (21:46)
[2022-12-14] MEDS: diazePAM 5 MG TABLET PO PRN ×3 (04:02→12:23)
[2022-12-14] MEDS: hydrOXYzine PAMOATE 25 MG CAPSULE (FP) PO PRN (06:11)
[2022-12-14] MEDS: PRENATAL VITAMINS W/ FOLIC ACID TABLET (FP) PO SCH (09:55)
[2022-12-14] MEDS ORDERED: methaDONE HCL 10 MG TABLET (FOR DETOX USE ONLY) PO ONE (10:00)
[2022-12-14] MEDS ORDERED: TRIMETHOBENZAMIDE HCL 200MG/2ML INJ IM ONE (11:07)
[2022-12-14] MEDS: THIAMINE HCL 100 MG TABLET (FP) PO SCH (22:57)
[2022-12-15] MEDS: hydrOXYzine PAMOATE 25 MG CAPSULE (FP) PO PRN ×2 (01:26→15:13)
[2022-12-15] MEDS: diazePAM 5 MG TABLET PO PRN ×3 (01:26→15:13)
[2022-12-15] MEDS: PRENATAL VITAMINS W/ FOLIC ACID TABLET (FP) PO SCH (10:11)
[2022-12-15] MEDS: THIAMINE HCL 100 MG TABLET (FP) PO SCH (22:41)
[2022-12-16] MEDS: diazePAM 5 MG TABLET PO PRN ×2 (03:30→08:51)
[2022-12-16 09:21] VITALS: BP 112/69; PULSE 77; RESP 17; TEMP 97.7
[2022-12-16] MEDS ORDERED: methaDONE HCL 10 MG TABLET (FOR DETOX USE ONLY) PO ONE (10:00)
[2022-12-16] MEDS: PRENATAL VITAMINS W/ FOLIC ACID TABLET (FP) PO SCH (10:24)
== END 2022-12-16 12:06 | disposition home or self-care (01) | DRG 773 ==
LOC: YASAS 21:12 → Y3N 23:42
PROVIDERS: ADMIT Allergy & Immunology; ATTEND Surgery
PROC: HZ2ZZZZ Detoxification Services for Substance Abuse Treatment (ICD-10-PCS; principal; 2022-12-11)
DX: F11.23 Opioid dependence with withdrawal (principal); F14.20 Cocaine dependence, uncomplicated; F12.20 Cannabis dependence, uncomplicated; F17.210 Nicotine dependence, cigarettes, uncomplicated; F41.9 Anxiety disorder, unspecified; R11.2 Nausea with vomiting, unspecified; R53.1 Weakness; R29.6 Repeated falls; W07.XXXA Fall from chair, initial encounter; Y92.232 Corridor of hospital as the place of occurrence of the external cause
CPT/HCPCS: 36415; 80053; 85027; 86780; 87635

== ENCOUNTER 2022-12-14 13:38 | Emergency (ER) | payer OTHER ==
[2022-12-14 14:02] VITALS: BP 141/79; PULSE 67; RESP 18; BMI 24.1
[2022-12-14] MEDS ORDERED: SODIUM CHLORIDE 0.9% 500 ML INFUS.BAG IV ONE (14:16)
[2022-12-14] MEDS ORDERED: ACETAMINOPHEN 1000 MG/100 ML BAG IVPB ONE (14:17)
[2022-12-14 15:01] LABS: BASO % 0.5 % (0-2.0); EOS % 0.1 % (0-4.5); HEMATOCRIT 44.4 % (35.4-49); HEMOGLOBIN 14.9 GM/dL (11.7-16.9); LYMPH % 8.2 % (8-40); MCH 29.2 pg (25.7-33.7); MCHC 33.4 g/dl (32.0-35.9); MEAN CELL VOLUME 87.4 fl (80-96); MEAN PLT VOLUME 7.5 fl (7.5-11.1); MONO % 5.5 % (3.8-10.2); NEUT % 85.7 % (42.8-82.8); PLATELET COUNT 440 10^3/uL (134-434); RBC 5.09 M/mm3 (4.00-5.60); WHITE BLOOD COUNT 8.4 K/mm3 (4.0-10.0)
[2022-12-14] MEDS ORDERED: ACETAMINOPHEN INJECTION 100 ML IVPB ONE (15:04)
[2022-12-14 15:20] LABS: POTASSIUM 4.3 mmol/L (3.5-5.1)
[2022-12-14 15:22] LABS: ALBUMIN 3.5 g/dl (3.4-5.0); CALCIUM 9.5 mg/dL (8.5-10.1)
[2022-12-14 15:23] LABS: BLOOD UREA NITROGEN 16.6 mg/dL (7-18); MAGNESIUM 1.8 mg/dL (1.8-2.4)
[2022-12-14 15:25] LABS: CREATININE 0.7 mg/dL (0.55-1.3); PHOSPHOROUS 4.1 mg/dL (2.5-4.9)
[2022-12-14 15:27] LABS: BILIRUBIN,TOTAL 0.4 mg/dL (0.2-1); TOT PROT 7.3 g/dl (6.4-8.2)
[2022-12-14] MEDS ORDERED: ONDANSETRON 4 MG/2 ML VIAL IVPB ONE (15:38)
[2022-12-14] MEDS ORDERED: ONDANSETRON 4 MG/2 ML VIAL ONE (16:11)
[2022-12-14 16:50] LABS: URINE APPEARANCE CLEAR; URINE BILIRUBIN NEGATIVE (NEGATIVE); URINE COLOR YELLOW; URINE GLUCOSE (UA) NEGATIVE (NEGATIVE); URINE KETONE NEGATIVE (NEGATIVE); URINE LEUK ESTERASE NEGATIVE (NEGATIVE); URINE NITRITE NEGATIVE (NEGATIVE); URINE PROTEIN TRACE (NEGATIVE); URINE UROBILINOGEN 0.2 mg/dL (0.2-1.0)
[2022-12-14 17:37] VITALS: TEMP 97.7
== END 2022-12-14 17:50 | disposition home or self-care (01) ==
LOC: JER 13:38
PROC: 3E033NZ Introduction of Analgesics, Hypnotics, Sedatives into Peripheral Vein, Percutaneous Approach (ICD-10-PCS; principal; 2022-12-14)
PROC: 3E033GC Introduction of Other Therapeutic Substance into Peripheral Vein, Percutaneous Approach (ICD-10-PCS; 2022-12-14)
DX: R53.1 Weakness (principal); R11.2 Nausea with vomiting, unspecified; R05.9 Cough, unspecified; R19.7 Diarrhea, unspecified; Z20.822 Contact with and (suspected) exposure to COVID-19
CPT/HCPCS: 0241U-QW; 36415; 71046-TC-FY; 80053; 81003; 82553; 83605; 83690; 83735; 84100; 84484; 85025; 87040; 87086; 93005; 93010; 99285-25

== ENCOUNTER 2023-05-19 15:46 | Inpatient (IN) | payer OTHER ==
[2023-05-19] MEDS ORDERED: VANCOMYCIN 1,000 MG in DEXTROSE 5%-WATER - 250 ML IVPB ONE (18:19)
[2023-05-19] MEDS ORDERED: PIPERACILLIN/TAZOB 3.375 GM 3.375 GM in DEXTROSE 5%-WATER - 50 ML IVPB ONE (18:19)
[2023-05-19] MEDS ORDERED: VANCOMYCIN 1 GRAM (PRE-DOCKED) 1,000 MG/250 ML BAG IVPB ONE ×2 (18:29→18:30)
[2023-05-19] MEDS ORDERED: PIPERACILLIN/TAZOB 3.375 GM 3.375 GM/50 ML BAG IVPB ONE (18:29)
[2023-05-19 18:35] LABS: BASO % 0.5 % (0-2.0); EOS % 8.7 % (0-4.5); HEMOGLOBIN 12.5 GM/dL (11.7-16.9); LYMPH % 16.1 % (8-40); MCH 29.4 pg (25.7-33.7); MCHC 32.8 g/dl (32.0-35.9); MEAN CELL VOLUME 89.7 fl (80-96); MEAN PLT VOLUME 7.3 fl (7.5-11.1); NEUT % 63.7 % (42.8-82.8); PLATELET COUNT 396 10^3/uL (134-434); RBC 4.24 M/mm3 (4.00-5.60); RDW 14.5 % (11.9-15.9)
[2023-05-19] MEDS ORDERED: ACETAMINOPHEN 1000 MG/100 ML BAG IVPB ONE (18:42)
[2023-05-19 18:50] LABS: CALCIUM 8.5 mg/dL (8.5-10.1)
[2023-05-19 18:51] LABS: ALBUMIN 3.1 g/dl (3.4-5.0); BLOOD UREA NITROGEN 19.1 mg/dL (7-18)
[2023-05-19 18:54] LABS: CREATININE 0.6 mg/dL (0.55-1.3); INR 1.16 (0.83-1.09); PROTHROMBIN TIME (PATIENT) 13.4 SEC (9.7-13.0)
[2023-05-19 18:56] LABS: ACTIVATED PTT 31.1 SECONDS (25.2-36.5); BILIRUBIN,TOTAL 0.2 mg/dL (0.2-1); TOT PROT 6.1 g/dl (6.4-8.2)
[2023-05-19 19:03] VITALS: BMI 22.8
[2023-05-19 19:23] LABS: ERYTHROCYTE SEDIMENTATION RATE 10 mm/hr (0-10)
[2023-05-19] MEDS ORDERED: LORazepam 1 MG TABLET PO PRN (21:48)
[2023-05-19] MEDS ORDERED: TETANUS AND DIPHTHERIA TOXOID 0.5 ML DISP.SYRIN IM ONE (22:27)
[2023-05-19] MEDS ORDERED: VANCOMYCIN/WATER FOR INJ (PEG) 1,000 MG/200 ML BAG IVPB SCH (22:30)
[2023-05-19] MEDS ORDERED: LORazepam 1 MG TABLET ONE (23:43)
[2023-05-19] MEDS ORDERED: NICOTINE 7 MG/24 HOURS TOPICAL PATCH TD ONE (23:44)
[2023-05-19] MEDS: NICOTINE 7 MG/24 HOURS TOPICAL PATCH TD SCH (23:52)
[2023-05-20] MEDS: PIPERACILLIN/TAZOB 3.375 GM 3.375 GM in DEXTROSE 5%-WATER - 50 ML IVPB SCH ×4 (03:02→21:43)
[2023-05-20] MEDS ORDERED: PIPERACILLIN/TAZOB 3.375 GM 3.375 GM/50 ML BAG IVPB ONE (03:04)
[2023-05-20] MEDS: LORazepam 1 MG TABLET PO PRN ×2 (05:44→13:46)
[2023-05-20] MEDS ORDERED: methaDONE HCL 10 MG TABLET PO ONE (06:00)
[2023-05-20] MEDS ORDERED: VANCOMYCIN/WATER FOR INJ (PEG) 1,000 MG/200 ML BAG IVPB SCH ×2 (07:00→19:30)
[2023-05-20] MEDS ORDERED: FOLIC ACID 1 MG TABLET (FP) PO SCH (10:00)
[2023-05-20] MEDS ORDERED: ENOXAPARIN NA (PORCINE) 40 MG/0.4 ML DISP.SYRIN SQ SCH (10:00)
[2023-05-20 10:36] LABS: POTASSIUM 4.3 mmol/L (3.5-5.1)
[2023-05-20 10:47] LABS: ALBUMIN 3.1 g/dl (3.4-5.0); BLOOD UREA NITROGEN 12.6 mg/dL (7-18); MAGNESIUM 2.3 mg/dL (1.8-2.4)
[2023-05-20 10:50] LABS: CREATININE 0.6 mg/dL (0.55-1.3)
[2023-05-20 10:52] LABS: BILIRUBIN,TOTAL 0.4 mg/dL (0.2-1); PHOSPHOROUS 3.1 mg/dL (2.5-4.9)
[2023-05-20 10:53] LABS: TOT PROT 6.6 g/dl (6.4-8.2)
[2023-05-20] MEDS: NICOTINE 7 MG/24 HOURS TOPICAL PATCH TD SCH (13:50)
[2023-05-20 15:04] VITALS: RESP 18
[2023-05-20] MEDS ORDERED: methaDONE HCL 10 MG TABLET (FOR DETOX USE ONLY) PO SCH (15:17)
[2023-05-20] MEDS: VANCOMYCIN/WATER FOR INJ (PEG) 1,000 MG/200 ML BAG IVPB SCH (17:24)
[2023-05-20] MEDS: cloNIDine HCL 0.1 MG TABLET PO PRN (17:40)
[2023-05-20] MEDS ORDERED: THIAMINE HCL 100 MG TABLET (FP) PO SCH (22:00)
[2023-05-21] MEDS: cloNIDine HCL 0.1 MG TABLET PO PRN ×2 (00:34→08:24)
[2023-05-21] MEDS: LORazepam 1 MG TABLET PO PRN (02:18)
[2023-05-21] MEDS ORDERED: methaDONE HCL 10 MG TABLET PO ONE ×2 (06:00→10:00)
[2023-05-21] MEDS: VANCOMYCIN/WATER FOR INJ (PEG) 1,000 MG/200 ML BAG IVPB SCH (06:04)
[2023-05-21 06:23] VITALS: BP 97/67; PULSE 73; TEMP 97.9
[2023-05-21 09:22] LABS: BASO % 0.4 % (0-2.0); EOS % 2.5 % (0-4.5); HEMATOCRIT 43.2 % (35.4-49); HEMOGLOBIN 14.1 GM/dL (11.7-16.9); LYMPH % 10.1 % (8-40); MCH 29.7 pg (25.7-33.7); MCHC 32.6 g/dl (32.0-35.9); MEAN CELL VOLUME 91.1 fl (80-96); MEAN PLT VOLUME 7.5 fl (7.5-11.1); MONO % 5.1 % (3.8-10.2); NEUT % 81.9 % (42.8-82.8); PLATELET COUNT 495 10^3/uL (134-434); RBC 4.74 M/mm3 (4.00-5.60); RDW 14.3 % (11.9-15.9); WHITE BLOOD COUNT 10.1 K/mm3 (4.0-10.0)
[2023-05-21 10:06] LABS: POTASSIUM 4.4 mmol/L (3.5-5.1)
[2023-05-21 10:22] LABS: BLOOD UREA NITROGEN 17.1 mg/dL (7-18)
[2023-05-21 10:23] LABS: CALCIUM 9.2 mg/dL (8.5-10.1); MAGNESIUM 2.2 mg/dL (1.8-2.4)
[2023-05-21 10:25] LABS: CREATININE 0.8 mg/dL (0.55-1.3)
[2023-05-21 10:26] LABS: PHOSPHOROUS 3.4 mg/dL (2.5-4.9); TOT PROT 6.6 g/dl (6.4-8.2)
[2023-05-21 10:27] LABS: BILIRUBIN,TOTAL 0.3 mg/dL (0.2-1)
[2023-05-21 15:39] LABS: HIV INTERPRETATION NEGATIVE (NEGATIVE)
[2023-05-23] MEDS ORDERED: methaDONE HCL 10 MG TABLET PO ONE ×2 (06:00→10:00)
== END 2023-05-21 09:30 | disposition left against medical advice (07) | DRG 344 ==
LOC: JER 15:46 → JERBED 19:56 → J5S 05-20 03:28
PROVIDERS: ADMIT Internal Medicine
DX: M86.8X4 Other osteomyelitis, hand (principal); F41.1 Generalized anxiety disorder; L03.113 Cellulitis of right upper limb; F11.20 Opioid dependence, uncomplicated; F12.20 Cannabis dependence, uncomplicated; F10.20 Alcohol dependence, uncomplicated; F17.210 Nicotine dependence, cigarettes, uncomplicated; L03.114 Cellulitis of left upper limb
CPT/HCPCS: 36415; 73130-TC-LT-FY; 73130-TC-RT-FY; 80053; 83735; 84100; 85025; 85610; 85651; 85730; 86140; 86850; 86900; 86901; 87040; 87186; 87389; 93005; 93010; 99285-25; G0480